=== PATIENT | male | born 2000 | race Caucasian/White ===

== ENCOUNTER 2021-03-27 22:10 | Emergency (ER) | payer BC ==
[~2021-03-27] VITALS: Ht 177.8 cm; Wt 77.1 kg
[2021-03-27 22:20] VITALS: BP_SYST 126
[2021-03-28] MEDS ORDERED: ACET-73 PO (01:55)
[2021-03-28 02:04] VITALS: BP_SYST 126
== END 2021-03-28 02:04 | disposition home or self-care (01) ==
LOC: SED 22:10
DX: S06.0X0A Concussion without loss of consciousness, initial encounter (principal); W22.01XA Walked into wall, initial encounter; Y93.61 Activity, american tackle football; Y92.89 Other specified places as the place of occurrence of the external cause; Y99.8 Other external cause status
CPT/HCPCS: 70450-TC; 76376; 99284